=== PATIENT | female | born 1950 | race Caucasian/White ===

== ENCOUNTER 2018-08-11 16:15 | Emergency (ER) | payer MEDICARE, OTHER ==
[~2018-08-11] VITALS: Ht 165.1 cm; Wt 64.5 kg
[~2018-08-11 16:15] MED LIST: BUPR300T53 PO
[2018-08-11] MEDS ORDERED: LORazepam 2 mg/ml vial IV ONE (16:55)
[2018-08-11 16:59] LABS: BASOPHILS % (AUTO) 0.5 % (0-1); EOSINOPHILS # (AUTO) 0.1 X10'3 (0-0.9); EOSINOPHILS % (AUTO) 1.7 % (0-6); HEMATOCRIT 41.5 % (35.0-45.0); HEMOGLOBIN 13.6 g/dl (12.0-16.0); LYMPHOCYTES % (AUTO) 27.9 % (21-51); MEAN CORPUSCULAR HEMOGLOBIN 29.5 PG (27.0-31.0); MEAN CORPUSCULAR HGB CONC 32.7 % (33.0-36.5); MEAN CORPUSCULAR VOLUME 90.1 FL (78-98); MEAN PLATELET VOLUME 8.7 FL (7.4-10.4); MONOCYTES # (AUTO) 0.5 X10'3 (0-0.9); MONOCYTES % (AUTO) 7.1 % (2-12); NEUTROPHILS # (AUTO) 4.5 X10'3 (1.8-7.7); NEUTROPHILS % (AUTO) 62.8 % (42-75); PLATELET COUNT 283 X10'3 (140-440); RED CELL DISTRIBUTION WIDTH 14.6 % (11.5-14.5); WHITE BLOOD COUNT 7.1 X10'3 (4.5-11.0)
[2018-08-11 17:11] LABS: PARTIAL THROMBOPLASTIN TIME 25 SECONDS (22-32); PROTHROMBIN TIME 9.7 SECONDS (9.0-12.0)
[2018-08-11 17:13] LABS: ALANINE AMINOTRANSFERASE 26 U/L (12-78); ALKALINE PHOSPHATASE 66 IU/L (46-116); ANION GAP 9 (8-16); ASPARTATE AMINO TRANSFERASE 13 U/L (10-37); BILIRUBIN,TOTAL 0.3 MG/DL (0.1-1.0); CHLORIDE 106 MMOL/L (99-107); SODIUM 144 MMOL/L (135-145); TOTAL CARBON DIOXIDE 28.9 MMOL/L (24-32)
[2018-08-11 17:23] LABS: CLARITY,URINE CLEAR (Clear); COLOR,URINE YELLOW (Yellow); GLUCOSE, URINE NEGATIVE (Neg); KETONES,URINE NEGATIVE (Neg); LEUKOCYTE ESTERASE ,URINE NEGATIVE (Neg); NITRITES, URINE NEGATIVE (Neg); OCCULT BLOOD,URINE NEGATIVE (Neg); PROTEIN,URINE NEGATIVE (Neg); UROBILINOGEN,URINE 0.2 E.U/dL (0.2-1.0)
[2018-08-11 17:27] LABS: ALBUMIN/GLOBULIN RATIO 1.2 (1.1-1.5); BLOOD UREA NITROGEN 14 MG/DL (7-18); BUN/CREATININE RATIO 17.1 (6.6-38.0); CALCIUM 9.1 MG/DL (8.5-10.1); CREATININE 0.82 MG/DL (0.40-0.90); GLUCOSE 93 MG/DL (70-104); TOTAL PROTEIN 7.4 G/DL (6.4-8.2); TROPONIN I < 0.04 NG/ML (0.0-0.05); eGFR 69 ML/MIN
[2018-08-11 17:28] LABS: UA COLLECTION TYPE CLN CATCH MIDSTREAM
[2018-08-11 17:30] VITALS: BP 159/92
[2018-08-11 17:38] LABS: URINE AMPHETAMINE SCREEN NEGATIVE (Neg); URINE BARBITUATE SCREEN NEGATIVE (Neg); URINE BENZODIAZEPINES SCREEN NEGATIVE (Neg); URINE CANNABINOID SCREEN NEGATIVE (Neg); URINE COCAINE SCREEN NEGATIVE (Neg); URINE METHADONE SCREEN NEGATIVE (Neg); URINE OPIATE SCREEN NEGATIVE (Neg); URINE PHENCYCLIDINE SCREEN NEGATIVE (Neg)
== END 2018-08-11 18:54 | disposition home or self-care (01) ==
LOC: ER 16:16
DX: R42 Dizziness and giddiness (principal); Z90.710 Acquired absence of both cervix and uterus; Z98.890 Other specified postprocedural states; Z88.0 Allergy status to penicillin; Z88.1 Allergy status to other antibiotic agents
CPT/HCPCS: 36415; 70450; 71045; 80053; 80305; 81003; 82948; 84484; 85025; 85610; 85730; 93005; 96374; 99284; J2060

== ENCOUNTER → 2020-03-19 | Emergency (ER) | payer MEDICARE, OTHER ==
[~2020-03-19] VITALS: Ht 165.1 cm; Wt 67.0 kg
[~2020-03-19] MED LIST changes: +HYDR-4353 PO; +ibuprofen 200mg tablet PO ONE; +ibuprofen tablet 400 MG TABLET PO ONE
[2020-03-19 01:48] VITALS: BP 126/73
== END | disposition home or self-care (01) ==
LOC: ER 01:46
DX: S52.501A Unspecified fracture of the lower end of right radius, initial encounter for closed fracture (principal); F41.9 Anxiety disorder, unspecified; F32.9 Major depressive disorder, single episode, unspecified; Z79.2 Long term (current) use of antibiotics; Z88.8 Allergy status to other drugs, medicaments and biological substances; Z79.899 Other long term (current) drug therapy; W19.XXXA Unspecified fall, initial encounter; Y93.89 Activity, other specified; Y92.89 Other specified places as the place of occurrence of the external cause; Y99.8 Other external cause status
CPT/HCPCS: 29105; 73110; 99284

== ENCOUNTER 2020-08-22 21:52 | Emergency (ER) | payer MEDICARE, OTHER ==
[~2020-08-22] VITALS: Ht 165.1 cm; Wt 66.7 kg
[~2020-08-22 21:52] MED LIST changes: -HYDR-4353 PO; -ibuprofen 200mg tablet PO ONE; -ibuprofen tablet 400 MG TABLET PO ONE
--- NOTE | 2020-08-22 23:20 | NUR ---
PATIENT RECEIVED AN EYE IRRIGATION WITH 1L/ NS. PATIENT STATES SHE FEELS MUCH BETTER. PATIENT WILL BE DC HOME.
[2020-08-22 23:28] VITALS: BP 133/67
== END 2020-08-22 23:34 | disposition home or self-care (01) ==
LOC: ER 21:53
DX: T65.891A Toxic effect of other specified substances, accidental (unintentional), initial encounter (principal); H57.11 Ocular pain, right eye; Z90.710 Acquired absence of both cervix and uterus; Z98.890 Other specified postprocedural states; Z88.2 Allergy status to sulfonamides; Z88.8 Allergy status to other drugs, medicaments and biological substances; Z79.899 Other long term (current) drug therapy; Y92.89 Other specified places as the place of occurrence of the external cause
CPT/HCPCS: 99284

== ENCOUNTER 2020-10-21 11:27 | Emergency (ER) | payer MEDICARE, OTHER ==
[~2020-10-21] VITALS: Ht 162.6 cm; Wt 75.2 kg
[2020-10-21 11:33] VITALS: BP 142/83
[2020-10-21] MEDS ORDERED: ketorolac tromethamine 15mg/ml inj. IM ONE (12:15)
[2020-10-21] MEDS ORDERED: IBUP-1984 PO (12:45)
[2020-10-21] MEDS ORDERED: LIDO700A32 TOP (12:45)
== END 2020-10-21 13:05 | disposition home or self-care (01) ==
LOC: ER 11:28
DX: R07.89 Other chest pain (principal); F41.9 Anxiety disorder, unspecified; F32.9 Major depressive disorder, single episode, unspecified; Z90.710 Acquired absence of both cervix and uterus; Z98.890 Other specified postprocedural states; Z88.1 Allergy status to other antibiotic agents; Z79.899 Other long term (current) drug therapy
CPT/HCPCS: 71045; 96372; 99283; J1885

== ENCOUNTER 2022-03-22 20:32 | Emergency (ER) | payer MEDICARE, OTHER ==
[~2022-03-22] VITALS: Ht 163.8 cm; Wt 68.2 kg
[~2022-03-22 20:32] MED LIST changes: +LIDO700A32 TOP
[2022-03-22 20:49] VITALS: BP 149/71
[2022-03-22] MEDS ORDERED: LIDOcaine 1% W/epiNEPHrine 1:100,000 20ml vial IJ ONE (21:45)
[2022-03-22] MEDS ORDERED: TETanus/Pertussis (Acell)/Diphther VAC/PF (Tdap-Adult) 0.5ml syringe IMVAC ONE (21:45)
[2022-03-22] MEDS ORDERED: bacitracin 15gm ointment TP ONE (21:45)
== END 2022-03-22 22:26 | disposition home or self-care (01) ==
LOC: ER 20:33
DX: S91.311A Laceration without foreign body, right foot, initial encounter (principal); Z98.890 Other specified postprocedural states; Z90.49 Acquired absence of other specified parts of digestive tract; Z88.0 Allergy status to penicillin; F31.9 Bipolar disorder, unspecified; Z88.1 Allergy status to other antibiotic agents; Z79.899 Other long term (current) drug therapy; Z88.8 Allergy status to other drugs, medicaments and biological substances; W45.8XXA Other foreign body or object entering through skin, initial encounter; Y93.89 Activity, other specified; Y92.89 Other specified places as the place of occurrence of the external cause; Y99.8 Other external cause status
CPT/HCPCS: 12001; 90471; 90715; 99283; J7030; A6258; A6449

== ENCOUNTER 2022-11-16 18:05 | Emergency (ER) | payer MEDICARE, OTHER ==
[~2022-11-16] VITALS: Ht 165.1 cm; Wt 67.7 kg
[2022-11-16 18:11] VITALS: BP 119/80
[2022-11-16] MEDS ORDERED: ketorolac trometh. 30mg/ml inj. IM ONE (19:20)
== END 2022-11-16 21:19 | disposition home or self-care (01) ==
LOC: ER 18:06
DX: M54.50 Low back pain, unspecified (principal); Z88.1 Allergy status to other antibiotic agents; Z90.710 Acquired absence of both cervix and uterus
CPT/HCPCS: 72070; 96372; 99284; J1885

== ENCOUNTER 2022-11-19 00:40 | Emergency (ER) | payer MEDICARE, OTHER ==
[~2022-11-19] VITALS: Ht 165.1 cm; Wt 67.7 kg
[2022-11-19] MEDS ORDERED: ketorolac trometh. 30mg/ml inj. IM ONE (03:10)
[2022-11-19 03:49] VITALS: BP 132/76
== END 2022-11-19 03:51 | disposition home or self-care (01) ==
LOC: ER 00:40
DX: M54.50 Low back pain, unspecified (principal); F31.9 Bipolar disorder, unspecified; Z90.49 Acquired absence of other specified parts of digestive tract; Z88.1 Allergy status to other antibiotic agents; Z88.5 Allergy status to narcotic agent; W19.XXXA Unspecified fall, initial encounter; Y93.89 Activity, other specified; Y92.89 Other specified places as the place of occurrence of the external cause; Y99.8 Other external cause status
CPT/HCPCS: 96372; 99284; J1885

== ENCOUNTER 2022-12-09 00:30 | Emergency (ER) | payer MEDICARE, OTHER ==
[~2022-12-09] VITALS: Ht 165.1 cm; Wt 65.9 kg
[2022-12-09 00:34] VITALS: BP 166/85
[2022-12-09] MEDS ORDERED: HYDROcodone/acetaminophen 5mg/325mg tablet PO ONE (02:05)
[2022-12-09] MEDS ORDERED: ketorolac trometh. 30mg/ml inj. IV ONE (02:20)
[2022-12-09 02:36] LABS: BASOPHILS % (AUTO) 0.4 % (0-1); EOSINOPHILS # (AUTO) 0.1 X10'3 (0-0.9); EOSINOPHILS % (AUTO) 1.3 % (0-6); HEMATOCRIT 41.4 % (35.0-45.0); HEMOGLOBIN 13.8 g/dl (12.0-16.0); LYMPHOCYTES # (AUTO) 2.3 X10'3 (1.1-4.8); LYMPHOCYTES % (AUTO) 31.7 % (21-51); MEAN CORPUSCULAR HEMOGLOBIN 29.8 PG (27.0-31.0); MEAN CORPUSCULAR HGB CONC 33.3 g/dL (33.0-36.5); MEAN CORPUSCULAR VOLUME 89.3 FL (78-98); MEAN PLATELET VOLUME 8.2 FL (7.4-10.4); MONOCYTES # (AUTO) 0.6 X10'3 (0-0.9); NEUTROPHILS # (AUTO) 4.1 X10'3 (1.8-7.7); NEUTROPHILS % (AUTO) 57.6 % (42-75); PLATELET COUNT 301 X10'3 (140-440); RED BLOOD COUNT 4.64 X10'6 (4.20-5.60); WHITE BLOOD COUNT 7.2 X10'3 (4.5-11.0)
[2022-12-09 02:45] LABS: CLARITY,URINE CLEAR (Clear); COLOR,URINE YELLOW (Yellow); GLUCOSE, URINE NEGATIVE (Neg); KETONES,URINE NEGATIVE (Neg); LEUKOCYTE ESTERASE ,URINE NEGATIVE (Neg); NITRITES, URINE NEGATIVE (Neg); OCCULT BLOOD,URINE NEGATIVE (Neg); PH,URINE 5.5 (4.8-8.0); PROTEIN,URINE NEGATIVE (Neg); UROBILINOGEN,URINE 0.2 E.U/dL (0.2-1.0)
[2022-12-09 02:54] LABS: ALANINE AMINOTRANSFERASE 17 U/L (12-78); ALBUMIN 3.7 G/DL (3.4-5.0); ALBUMIN/GLOBULIN RATIO 0.9 (1.1-1.5); ALKALINE PHOSPHATASE 98 IU/L (46-116); ANION GAP 7 (8-16); ASPARTATE AMINO TRANSFERASE 13 U/L (10-37); BILIRUBIN,TOTAL 0.4 MG/DL (0.1-1.0); BLOOD UREA NITROGEN 19 MG/DL (7-18); BUN/CREATININE RATIO 21.6 (10.0-20.0); CALCIUM 9.3 MG/DL (8.5-10.1); CHLORIDE 103 MMOL/L (99-107); CREATININE 0.88 MG/DL (0.40-0.90); GLUCOSE 101 MG/DL (70-104); SODIUM 138 MMOL/L (135-145); TOTAL CARBON DIOXIDE 28.4 MMOL/L (24-32); TOTAL PROTEIN 7.6 G/DL (6.4-8.2); eGFR 63 ML/MIN
[2022-12-09 02:57] LABS: UA COLLECTION TYPE CLN CATCH MIDSTREAM
== END 2022-12-09 04:11 | disposition home or self-care (01) ==
LOC: ER 00:31
DX: M54.9 Dorsalgia, unspecified (principal); F41.9 Anxiety disorder, unspecified; F32.A Depression, unspecified; Z88.0 Allergy status to penicillin; Z88.1 Allergy status to other antibiotic agents; Z79.899 Other long term (current) drug therapy
CPT/HCPCS: 36415; 76700; 80053; 81003; 85025; 96374; 99285; J1885

== ENCOUNTER 2024-06-06 20:27 | Emergency (ER) | payer MEDICARE, BC, OTHER ==
[~2024-06-06] VITALS: Ht 160 cm; Wt 70.9 kg
[2024-06-06 20:31] VITALS: BP 161/100; PULSE 100; RESP 16; O2SAT 96
[2024-06-06] MEDS ORDERED: acetaminophen 325mg tablet PO ONE (21:55)
[2024-06-06] MEDS: acetaminophen 325mg tablet PO ONE ×2 (22:00→22:04)
[2024-06-06] MEDS: LIDOcaine 5% patch TP STA (22:51)
[2024-06-06] MEDS ORDERED: HYDR-3965 PO (22:55)
[2024-06-06 23:04] VITALS: TEMP 98.2
== END 2024-06-06 23:06 | disposition home or self-care (01) ==
LOC: ER 20:28
DX: S22.32XA Fracture of one rib, left side, initial encounter for closed fracture (principal); S60.222A Contusion of left hand, initial encounter; F41.9 Anxiety disorder, unspecified; F32.A Depression, unspecified; M54.50 Low back pain, unspecified; Z88.1 Allergy status to other antibiotic agents; Z79.899 Other long term (current) drug therapy; Z90.710 Acquired absence of both cervix and uterus; W19.XXXA Unspecified fall, initial encounter; Y93.89 Activity, other specified; Y92.89 Other specified places as the place of occurrence of the external cause; Y99.8 Other external cause status
CPT/HCPCS: 71101; 72100; 73130; 99284

== ENCOUNTER 2024-07-11 19:16 | Emergency (ER) | payer MEDICARE, BC, OTHER ==
[~2024-07-11] VITALS: Ht 160 cm; Wt 73.9 kg
[2024-07-11 19:18] VITALS: TEMP 99.8
[2024-07-11 20:12] LABS: BASOPHILS % (AUTO) 0.2 % (0-1); EOSINOPHILS % (AUTO) 0.3 % (0-6); HEMATOCRIT 41.7 % (35.0-45.0); HEMOGLOBIN 13.7 g/dl (12.0-16.0); LYMPHOCYTES # (AUTO) 0.7 X10'3 (1.1-4.8); LYMPHOCYTES % (AUTO) 5.7 % (21-51); MEAN CORPUSCULAR HEMOGLOBIN 29.2 PG (27.0-31.0); MEAN CORPUSCULAR HGB CONC 32.7 g/dL (33.0-36.5); MEAN CORPUSCULAR VOLUME 89.2 FL (78-98); MEAN PLATELET VOLUME 8.5 FL (7.4-10.4); MONOCYTES # (AUTO) 0.7 X10'3 (0-0.9); MONOCYTES % (AUTO) 5.4 % (2-12); NEUTROPHILS # (AUTO) 11.3 X10'3 (1.8-7.7); NEUTROPHILS % (AUTO) 88.4 % (42-75); PLATELET COUNT 249 X10'3 (140-440); RED BLOOD COUNT 4.67 X10'6 (4.20-5.60); RED CELL DISTRIBUTION WIDTH 14.3 % (11.5-14.5); WHITE BLOOD COUNT 12.8 X10'3 (4.5-11.0)
[2024-07-11 20:19] LABS: ALBUMIN 3.9 G/DL (3.4-5.0); ANION GAP 8 (8-16); BLOOD UREA NITROGEN 10 MG/DL (7-18); BUN/CREATININE RATIO 12.7 (10.0-20.0); CALCIUM 8.9 MG/DL (8.5-10.1); CHLORIDE 105 MMOL/L (99-107); CREATININE 0.79 MG/DL (0.40-0.90); GLUCOSE 112 MG/DL (70-104); POTASSIUM 3.7 MMOL/L (3.5-5.1); SODIUM 138 MMOL/L (135-145); TOTAL CARBON DIOXIDE 24.7 MMOL/L (24-32); eCRCL 51 ML/MIN; eGFR 71 ML/MIN
[2024-07-11 20:34] LABS: STREP A SCREEN NEGATIVE (Neg)
[2024-07-11 21:23] VITALS: BP 163/85
[2024-07-11] MEDS: ondansetron/PF 4mg/2ml inj IV ONE (21:47)
[2024-07-11] MEDS: normal saline 1000ML IV soln IVB ONE (21:47)
[2024-07-11] MEDS: acetaminophen 1,000mg/100ml IV 100 ML IV ONE (22:03)
[2024-07-11] MEDS ORDERED: ONDA-243 PO (22:19)
[2024-07-12 01:46] VITALS: PULSE 101; RESP 16; O2SAT 98
== END 2024-07-12 01:47 | disposition home or self-care (01) ==
LOC: ER 19:17
DX: J06.9 Acute upper respiratory infection, unspecified (principal); F41.9 Anxiety disorder, unspecified; F32.A Depression, unspecified; Z88.1 Allergy status to other antibiotic agents; Z90.710 Acquired absence of both cervix and uterus; Z79.899 Other long term (current) drug therapy; Z20.822 Contact with and (suspected) exposure to COVID-19
CPT/HCPCS: 36415; 71045; 80048; 83605; 84145; 85025; 87040; 87081; 87502; 87503; 87811; 87880; 96361; 96374; 96375; 99284; J0131; J2405; J7030